=== PATIENT | male | born 1995 | race Caucasian/White ===

== ENCOUNTER 2019-08-06 06:50 | Day surgery (SDC) | payer BC, OTHER ==
[~2019-08-06 06:50] MED LIST: ACETAMINOPHEN 1,000 MG/100 ML BTL IVPB ONE
[2019-08-06] MEDS ORDERED: PROPOFOL 10 MG/ML VIAL IV ONE (06:51)
[2019-08-06] MEDS ORDERED: LIDOCAINE 2% MDV (20MG/ML) 20ML VIAL IV ONE (06:51)
[2019-08-06] MEDS ORDERED: ROPIVACAINE HCL (NAROPIN) /PF 5MG/ML 20ML VIAL IV ONE (06:51)
[2019-08-06] MEDS ORDERED: DEXAMETHASONE 4 MG/ML 1ML VIAL IVP ONE (06:51)
[2019-08-06] MEDS ORDERED: FENTANYL PF 100MCG/2ML VIAL IV ONE (06:51)
[2019-08-06] MEDS ORDERED: MIDAZOLAM HCL 2MG/2ML VIAL IV ONE (06:51)
[2019-08-06] MEDS ORDERED: RINGERS SOLUTION,LACTATED 1,000 ML IV ONE (08:56)
[2019-08-06] MEDS ORDERED: LIDOCAINE 1% W/EPI 1:200,000 MPF 30ML SQ ONE (09:23)
--- NOTE | 2019-08-07 13:00 | Operative Note ---
DATE OF SURGERY: 08/06/2019 SURGEON: David Donovan DO PREOPERATIVE DIAGNOSIS: Left olecranon bursitis. POSTOPERATIVE DIAGNOSIS: Left olecranon bursitis. OPERATION: Olecranon bursectomy, left elbow. DESCRIPTION OF PROCEDURE: This 24-year-old male was taken to the operating room and placed in the supine position on the operating room table. Axillary block anesthesia was used with 1% Xylocaine with epinephrine as augmentation. After prepping and draping in the usual sterile fashion, it was exsanguinated and the tourniquet inflated to 250 mmHg. An incision was made over the olecranon bursa, and sharp dissection carried down through the skin and subcutaneous tissue. Hemostasis obtained with the electrocautery. Because of the tension of the olecranon bursa, it was incised and evacuated and then it was much easier to identify the tissue planes. The bursa was from the subcutaneous tissue and from the olecranon blow and removed without difficulty. The ulnar nerve was protected during the operative procedure. With the olecranon bursa removed, the wound was copiously irrigated with lactated Ringer's solution, and the subcutaneous tissue closed with 3-0 Vicryl and subcutaneous tissue closed with running 4-0 nylon suture. Sterile dressings were applied and the patient taken to the recovery room in satisfactory condition. GROSS PATHOLOGY: This patient demonstrated a tense olecranon bursa which contained amorphous material and significant amount of fluid as well. MTDD
== END 2019-08-06 10:00 | disposition home or self-care (01) ==
LOC: SUR 06:50
PROVIDERS: ATTEND Orthopaedic Surgery
DX: M70.22 Olecranon bursitis, left elbow (principal); G47.33 Obstructive sleep apnea (adult) (pediatric)
CPT/HCPCS: J7120